=== PATIENT | female | born 1990 | race Caucasian/White ===

== ENCOUNTER 2018-09-29 12:12 | Outpatient (CLI) | payer OTHER ==
[~2018-09-29] VITALS: Ht 165.1 cm; Wt 89.5 kg
[2018-09-29 12:36] VITALS: BP 110/71
[2018-09-29] MEDS ORDERED: VALT500T PO (12:39)
[2018-10-06] MEDS ORDERED: IBUP-1114 PO (08:37)
[2018-10-06] MEDS ORDERED: MAPA500T17 PO (08:37)
[2018-10-06] MEDS ORDERED: PRENTAB9 PO (08:37)
[2018-10-06] MEDS ORDERED: MIRA3350 PO (08:37)
[2018-10-06] MEDS ORDERED: COLA100C5 PO (08:37)
[2018-10-06] MEDS ORDERED: ANUS2.5C2 TOP (08:37)
[2018-10-06] MEDS ORDERED: DIBU1OIN TOP (08:37)
== END 2018-09-29 13:20 | disposition home or self-care (01) ==
LOC: M LDO 12:12
PROVIDERS: ATTEND Obstetrics & Gynecology
DX: O47.1 False labor at or after 37 completed weeks of gestation (principal); Z3A.39 39 weeks gestation of pregnancy
CPT/HCPCS: 59025; G0378; G0463

== ENCOUNTER 2018-10-03 18:40 | Inpatient (IN) | payer OTHER ==
[2018-10-03] MEDS: LACTATED RINGER'S 1000 ML IV (22:00)
[2018-10-03] MEDS: LR 1,000 ML IV (22:10)
[2018-10-03 22:24] LABS: HEMATOCRIT 34.8 % (36.0-47.0); HEMOGLOBIN 12.3 g/dl (12.0-15.5); MEAN CORPUSCULAR HEMOGLOBIN 31.2 pg (27.0-33.0); MEAN CORPUSCULAR HGB CONC 35.3 g/dl (32.0-36.5); MEAN CORPUSCULAR VOLUME 88.3 fl (80.0-96.0); PLATELET COUNT, AUTOMATED 181 10^3/uL (150-450); RED BLOOD COUNT 3.94 10^6/uL (4.00-5.40); RED CELL DISTRIBUTION WIDTH 12.2 % (11.5-14.5); WHITE BLOOD COUNT 10.5 10^3/uL (4.0-10.0)
[2018-10-03] MEDS ORDERED: OXYTOCIN 30 UNITS IN 0.9% NaCl 500ML IV BAG (J2590) As Ordered (23:52)
[2018-10-04] MEDS ORDERED: OXYTOCIN 30 UNITS IN 0.9% NaCl 500ML IV BAG (J2590) As Ordered (00:42)
[2018-10-04] MEDS: OXYTOCIN INJ 10 UNITS/ML VIAL (J2590) IV (03:13)
[2018-10-04] MEDS: OXYTOCIN DRIP 30 UNITS in APPROPRIATE DILUENT 1 EA IV (03:20)
[2018-10-04] MEDS ORDERED: FENTANYL 2MCG/ML ROPIVACAINE 0.2% IN 0.9% NACL 100ML IVBAG As Ordered (03:23)
[2018-10-04 03:27] LABS: CORD GAS ABE V -3.3; CORD GAS HCO3 V 22.4 MEQ/L; CORD GAS O2 SAT V 63.8 %; CORD GAS PCO2 V 42.5 mmHg; CORD GAS PH V 7.339 UNITS; CORD GAS SBC V 20.9 MEQ/L; CORD GAS TCO2 V 23.7 MEQ/L
[2018-10-04] MEDS ORDERED: ANUSOL HC CREAM 30GM TOP (05:30)
[2018-10-04] MEDS ORDERED: MOM 30ML SUSPENSION UDC PO (05:30)
[2018-10-04] MEDS ORDERED: METHYLERGONOVINE MALEATE 0.2 MG TAB PO (05:30)
[2018-10-04] MEDS: LR 1,000 ML IV ×2 (05:46→10:50)
[2018-10-04] MEDS: FENTANYL/ROPIVACAINE/NACL BAG 100 ML EPIDURAL (06:00)
[2018-10-04] MEDS ORDERED: EPIDURAL/PCA KEYS XX (06:00)
[2018-10-04] MEDS ORDERED: ePHEDrine SULFATE 25 MG/5 ML(5MG/ML) SYRINGE IV (06:00)
[2018-10-04] MEDS ORDERED: EPIDURAL COMMENT XX (06:00)
[2018-10-04] MEDS ORDERED: diphenhydrAMINE INJ 50MG/ML VIAL (J1200) IV (06:00)
[2018-10-04] MEDS ORDERED: LACTATED RINGER'S 1000 ML IV (06:00)
[2018-10-04] MEDS ORDERED: ONDANSETRON 4MG/2ML VIAL (J2405) IV (06:00)
[2018-10-04] MEDS ORDERED: NALOXONE INJ 0.4 MG/1 ML VIAL (J2310) IV (06:00)
[2018-10-04] MEDS ORDERED: REFRIGERATOR IV KEYS XX (06:00)
[2018-10-04] MEDS: RHOGAM 300 MCG (1500 IU) INJ (J2790) IM (08:26)
[2018-10-04] MEDS: MEASLES,MUMPS,RUBELLA VACCINE INJ (MMR-II) (90707) SC (08:26)
[2018-10-04] MEDS: DIBUCAINE 1% OINTMENT 30GM TOP (08:40)
[2018-10-04] MEDS: IBUPROFEN 800 MG TAB PO ×2 (08:41→15:59)
[2018-10-04] MEDS: PRENATAL VITAMINS CHEWABLE TABLET PO (08:41)
[2018-10-04] MEDS: DOCUSATE SODIUM 100 MG CAP PO ×2 (08:46→20:48)
[2018-10-04] MEDS ORDERED: OXYTOCIN INJ 10 UNITS/ML VIAL (J2590) As Ordered (10:51)
[2018-10-04] MEDS: ACETAMINOPHEN 500 MG TAB PO ×2 (13:14→20:49)
[2018-10-05] MEDS: IBUPROFEN 800 MG TAB PO ×3 (00:14→16:15)
[2018-10-05] MEDS: ACETAMINOPHEN 500 MG TAB PO ×3 (04:00→18:52)
[2018-10-05] MEDS: PRENATAL VITAMINS CHEWABLE TABLET PO (07:55)
[2018-10-05] MEDS: DOCUSATE SODIUM 100 MG CAP PO ×2 (10:54→19:49)
[2018-10-05] MEDS: MIRALAX *UNIT DOSE* 17GM PACKET PO (11:31)
[2018-10-06] MEDS: IBUPROFEN 800 MG TAB PO ×2 (00:13→11:23)
[2018-10-06] MEDS: ACETAMINOPHEN 500 MG TAB PO (06:50)
[2018-10-06] MEDS: PRENATAL VITAMINS CHEWABLE TABLET PO (07:35)
[2018-10-06] MEDS: MIRALAX *UNIT DOSE* 17GM PACKET PO (07:35)
[2018-10-06] MEDS: DOCUSATE SODIUM 100 MG CAP PO (07:35)
== END 2018-10-06 14:17 | disposition home or self-care (01) | DRG 768 ==
LOC: M LDO 18:40 → M OBS 10-04 07:50 → M LDI 21:45
PROVIDERS: Obstetrics & Gynecology
PROC: 10E0XZZ Delivery of Products of Conception, External Approach (ICD-10-PCS; principal; 2018-10-03)
PROC: 0DQP0ZZ Repair Rectum, Open Approach (ICD-10-PCS; 2018-10-03)
PROC: 10907ZC Drainage of Amniotic Fluid, Therapeutic from Products of Conception, Via Natural or Artificial Opening (ICD-10-PCS; 2018-10-03)
DX: O48.0 Post-term pregnancy (principal); Z37.0 Single live birth; O70.3 Fourth degree perineal laceration during delivery; Z3A.40 40 weeks gestation of pregnancy; O32.1XX0 Maternal care for breech presentation, not applicable or unspecified